=== PATIENT | female | born 1980 | race Two or more races ===

== ENCOUNTER → 2017-04-24 16:34 | Outpatient (CLI) | payer OTHER ==
[~2017-04-24 16:34] MED LIST: TAPAZOLE10 MG PO; ZITHROMAX200 MG PO
== END | disposition home or self-care (01) ==
LOC: LAB 16:34
DX: E06.3 Autoimmune thyroiditis (principal)

== ENCOUNTER 2017-05-27 09:07 | Outpatient (CLI) | payer OTHER | END 2017-05-27 11:23 | disposition home or self-care (01) | LOC: NUCLEAR 09:07 | DX: E05.90 Thyrotoxicosis, unspecified without thyrotoxic crisis or storm (principal) | CPT/HCPCS: 78012; A9531 ==

== ENCOUNTER 2017-05-28 09:09 | Outpatient (CLI) | payer OTHER | END 2017-05-28 10:00 | disposition home or self-care (01) | LOC: NUCLEAR 09:09 | DX: E05.90 Thyrotoxicosis, unspecified without thyrotoxic crisis or storm (principal) | CPT/HCPCS: 78013; A9512 ==

== ENCOUNTER 2017-06-01 09:12 | Outpatient (CLI) | payer OTHER | END 2017-06-01 10:27 | disposition home or self-care (01) | LOC: SONOGRAMA 09:12 | DX: E06.3 Autoimmune thyroiditis (principal) ==

== ENCOUNTER 2017-06-04 12:13 | Outpatient (CLI) | payer OTHER | END 2017-06-04 12:28 | disposition home or self-care (01) | LOC: LAB 12:13 | DX: Z32.00 Encounter for pregnancy test, result unknown (principal) ==

== ENCOUNTER → 2017-06-05 | Outpatient (CLI) | payer OTHER | END | disposition home or self-care (01) | LOC: NUCLEAR 09:44 | DX: E05.90 Thyrotoxicosis, unspecified without thyrotoxic crisis or storm (principal) | CPT/HCPCS: 79005; A9517 ==

== ENCOUNTER 2017-08-10 09:13 | Emergency (ER) | payer OTHER ==
[~2017-08-10] VITALS: Ht 160 cm; Wt 53.5 kg
== END 2017-08-10 15:45 | disposition home or self-care (01) ==
LOC: ER 09:13
DX: R10.11 Right upper quadrant pain (principal)

== ENCOUNTER → 2017-08-13 | Emergency (ER) | payer OTHER ==
[~2017-08-13] VITALS: Ht 157.5 cm; Wt 53.5 kg
== END | disposition home or self-care (01) ==
LOC: ER 09:32
DX: K52.9 Noninfective gastroenteritis and colitis, unspecified (principal)

== ENCOUNTER 2017-08-17 07:59 | Outpatient (CLI) | payer OTHER | END 2017-08-17 08:18 | disposition home or self-care (01) | LOC: NUCLEAR 07:59 | DX: R10.84 Generalized abdominal pain (principal); K82.8 Other specified diseases of gallbladder | CPT/HCPCS: 78227; A9537; J2805 ==

== ENCOUNTER 2017-08-27 09:18 | Outpatient (CLI) | payer OTHER | END 2017-08-27 09:27 | disposition home or self-care (01) | LOC: LAB | DX: E05.90 Thyrotoxicosis, unspecified without thyrotoxic crisis or storm (principal) ==

== ENCOUNTER 2017-10-30 10:01 | Outpatient (CLI) | payer OTHER | END 2017-10-30 16:40 | disposition home or self-care (01) | LOC: LAB 10:01 | DX: E89.0 Postprocedural hypothyroidism (principal); E03.8 Other specified hypothyroidism ==

== ENCOUNTER 2018-01-07 09:31 | Outpatient (CLI) | payer OTHER ==
[~2018-01-07 09:31] MED LIST changes: +DIAZEPAM5 MG PO; +SYNTHROID100 MCG; +VOLTAREN-XR100 MG PO
== END 2018-01-07 16:34 | disposition home or self-care (01) ==
LOC: LAB 09:31
DX: D64.89 Other specified anemias (principal); E11.9 Type 2 diabetes mellitus without complications; E78.2 Mixed hyperlipidemia; K76.89 Other specified diseases of liver; E03.8 Other specified hypothyroidism; E55.9 Vitamin D deficiency, unspecified; R29.898 Other symptoms and signs involving the musculoskeletal system

== ENCOUNTER → 2018-05-12 09:16 | Outpatient (CLI) | payer OTHER | END | disposition home or self-care (01) | LOC: LAB 09:16 | DX: E03.8 Other specified hypothyroidism (principal); E89.0 Postprocedural hypothyroidism ==

== ENCOUNTER 2018-06-16 09:32 | Outpatient (CLI) | payer OTHER | END 2018-06-16 15:51 | disposition home or self-care (01) | LOC: RAD 09:32 | DX: M75.101 Unspecified rotator cuff tear or rupture of right shoulder, not specified as traumatic (principal); M54.2 Cervicalgia | CPT/HCPCS: 72141 ==

== ENCOUNTER 2018-09-23 12:09 | Outpatient (CLI) | payer OTHER | END 2018-09-23 12:13 | disposition home or self-care (01) | LOC: LAB 12:09 | DX: J11.1 Influenza due to unidentified influenza virus with other respiratory manifestations (principal); J11.89 Influenza due to unidentified influenza virus with other manifestations ==

== ENCOUNTER 2019-01-14 09:26 | Outpatient (CLI) | payer OTHER | END 2019-01-14 10:30 | disposition home or self-care (01) | LOC: LAB 09:26 | DX: N20.0 Calculus of kidney (principal); R39.15 Urgency of urination; Z87.442 Personal history of urinary calculi ==

== ENCOUNTER → 2019-02-03 08:50 | Outpatient (CLI) | payer OTHER | END | disposition home or self-care (01) | LOC: LAB 08:50 | DX: D64.89 Other specified anemias (principal); E11.9 Type 2 diabetes mellitus without complications; E78.2 Mixed hyperlipidemia; I10 Essential (primary) hypertension; E03.8 Other specified hypothyroidism ==

== ENCOUNTER 2019-05-20 06:47 | Outpatient (CLI) | payer OTHER | END 2019-05-20 14:44 | disposition home or self-care (01) | LOC: LAB 06:47 | DX: E03.8 Other specified hypothyroidism (principal); E04.8 Other specified nontoxic goiter; E04.1 Nontoxic single thyroid nodule ==